=== PATIENT | male | born 1980 | race Caucasian/White ===

== ENCOUNTER 2021-02-07 11:49 | Outpatient (CLI) | payer OTHER, SELFPAY ==
--- NOTE | 2021-02-07 | XR_ITS ---
WS: [id number] PROCEDURE: XR chest 2V* [id number] CLINICAL INFORMATION: NIGHTS SWEATS/PRIOR CT SHOWED LYMPHADENOPATHY COMPARISON: and CT chest abdomen pelvis 2018 FINDINGS: Heart: Normal cardiac silhouette. Lungs: Lungs are well aerated. No consolidation or pleural fluid. No acute pulmonary infiltrates. No focal pneumonia or pleural fluid. Bones: Normal visualized bony structures. XR/XR chest 2V* [id number] IMPRESSION: 1. No acute pulmonary infiltrates today. 2. Previous described mucus plugging in the left upper lobe with some residual opacity appears improved compared to 2018. This can be followed up with chest CT.
== END 2021-02-07 11:50 | disposition home or self-care (01) ==
PROVIDERS: Visit Provider Family Medicine
DX: R61 Generalized hyperhidrosis (principal)
CPT/HCPCS: 71046

== ENCOUNTER 2021-03-07 14:22 | Outpatient (CLI) | payer OTHER, SELFPAY ==
--- NOTE | 2021-03-07 14:44 | CT_ITS ---
WS: [id number] CT CHEST WITH INTRAVENOUS CONTRAST HISTORY: NIGHT SWEATS, PRIOR CT SHOWED LYMPHADENOPATHY TECHNIQUE: Contiguous 5 mm axial imaging performed on the thorax. Coronal and sagittal reformats are submitted. All CT scans at [facility] use at least one of these dose optimization techniques: automated exposure control; mA and/or kV adjustment per patient size (includes targeted exams where dose is matched to clinical indication); or iterative reconstruction. CONTRAST: Omnipaque 300; 95 mL IV. DLP: 541.69 mGycm COMPARISON: 03/25/2018 Lungs and central airway: Noncalcified 8 mm ovoid nodule LEFT upper lobe adjacent to the fissure. Thi s nodule is in an area of resolved pneumonia as seen on the study from 2018. Pleura: Normal. No pleural effusion. Heart and pericardium: Normal size heart with no pericardial effusion. Mediastinum and olamide: No mediastinum or hilar adenopathy. Vessels: Mild atherosclerosis aorta. Normal size pulmonary artery. Chest wall and lower neck: No soft tissue masses. Upper abdomen: Scattered nodules of decreased attenuation within the liver. These were seen on the pr ior studies without progression. These are probably hemangiomas or small cysts which are too small to characterize completely. Possible stone at the neck of the gallbladder. No acute cholecystitis. No a drenal mass. Osseous structures: No destructive process. CT/CT chest w con* [id number] IMPRESSION: 1. LEFT upper lobe noncalcified 8 mm ovoid nodule. This nodule is in the same area as the previously described pneumonia seen on the study from 2018. No int erval examination to evaluate for resolution or stability. Recommend follow-up chest CT in 6 months to document stability. Noncontrast chest CT should be suff icient. 2. No mediastinal or hilar adenopathy.
[2021-03-07] MEDS: iohexol 300 mg/mL 100 mL Btl IV (15:01)
== END 2021-03-07 14:23 | disposition home or self-care (01) ==
PROVIDERS: Visit Provider Family Medicine
DX: R61 Generalized hyperhidrosis (principal); R91.1 Solitary pulmonary nodule
CPT/HCPCS: 71260; Q9967

== ENCOUNTER 2021-11-17 14:28 | Emergency (ER) | payer MEDICAID, SELFPAY ==
[2021-11-17 14:33] VITALS: BP 157/85; PULSE 44; RESP 16; TEMP 35.9; O2SAT 100; BMI 23.6
--- NOTE | 2021-11-17 14:55 | CTR_ITS ---
PROCEDURE INFORMATION: Exam: CT Abdomen And Pelvis Without Contrast Exam date and time: 11/17/2021 3:40 PM Age: 41 years old Clinical indication: Abdominal pain; Patient HX: C/O epigastric pain TECHNIQUE: Imaging protocol: Computed tomography of the abdomen and pelvis without contrast. Radiation optimization: All CT scans at this facility use at least one of these dose optimization techniques: automated exposure control; mA and/or kV adjustment per patient size (includes targeted exams where dose is matched to clinical indication); or iterative reconstruction. COMPARISON: CT Chest/Abdomen/Pelvis w IV* 03/25/2018 3:02 AM RADIATION DOSE METRICS: Total DLP (mGy-cm): 868.24 FINDINGS: Liver: Liver is normal in size without cirrhosis. A discrete hypodense hepatic dome lesion is noted measuring 6 mm, probably benign such as hepatic cysts, unchanged. Several other small hypodense lesions were also seen on previous contrast-enhanced exam which are difficult to assess without IV contrast currently. If there is high risk or prior malignancy, dedicated hepatic imaging by multiphasic contrast-enhanced MRI may also be considered. Gallbladder and bile ducts: There is a calcified calculus which may be impacted in the gallbladder neck region measuring 12 mm. Additional punctate calculi may also be present in the gallbladder fundal region. There is distended gallbladder lumen. However no obvious wall thickening or acute regional inflammatory response. Clinical/sonographic correlation may be helpful. No abnormal bile duct dilatation. Pancreas: Normal. No ductal dilation. Spleen: Normal. No splenomegaly. Adrenal glands: Normal. No mass. Kidneys and ureters: Punctate nonobstructing left renal calculus measuring 2 x 2 mm. No hydronephrosis. Right upper pole renal hypodense lesion measuring about 9 mm which was demonstrated to be probable simple cysts on prior contrast-enhanced exam. Stomach and bowel: Small amount of fecal retention. Ill-defined right upper pole hypodense renal No obvious bowel dilatation, pneumatosis or suspicious bowel wall thickening however assessment is limited due to lack of contrast. Slightly increased submucosal fat throughout some colonic segments, nonspecific and may be related to normal physiologic variation or mild nonspecific chronic colitis. Appendix: No evidence of appendicitis. Intraperitoneal space: Unremarkable. No free air. No significant fluid collection. Vasculature: No abdominal aortic aneurysm. Lymph nodes: No enlarged lymph nodes. Urinary bladder: Unremarkable as visualized. Reproductive: Unremarkable as visualized. Bones/joints: No acute fracture. Soft tissues: No acute findings. CT/CT abdomen pelvis wo con [id number] IMPRESSION: 1. Hepatic lesion as described. See discussion above. No cirrhosis. 2. Cholelithiasis. Somewhat distended gallbladder lumen. See discussion above. 3. Nonobstructing left renal calculus and small hypodense left renal lesion, too small to characterize but is likely simple cyst. No acute urinary tract findings otherwise. 4. Slightly increased submucosal fat throughout some colonic segments. No acute bowel findings otherwise. COMMENTS: Consistent with the [employer]'s Incidental Findings Committee white paper (J Am Holley Radiol 2018): Any incidental renal lesion less than 1 cm or classified as too small to characterize, or any incidental cystic renal lesion characterized as simple-appearing, is likely benign. No follow-up imaging is recommended for these lesions per consensus recommendations based on imaging criteria.
--- NOTE | 2021-11-17 14:56 | XR_ITS ---
WS: [id number] Portable AP upright chest, 11/17/2021 Clinical Data: dyspnea/cough Comparison: PA and lateral chest, 02/07/2021. Findings: No nodules, masses or effusions are seen. The heart is normal. The pulmonary vascularity is not increased. No pneumonia or pneumothorax is seen. XR/XR chest 1V portable [id number] Impression: Negative chest.
--- NOTE | 2021-11-17 14:56 | ECG_ITS ---
[facility] Test Date: 2021-11-17 Pat Name: Mitchell Peters Department: Room: Gender: Male Nursing Officer: : 1980 Requested By: Petey Brand Order Number: [id number] Merissa MD: Marika Dow M.D. Measurements Intervals Frost Rate: 43 P: 39 WA: 136 QRS: 58 QRSD: 80 T: 60 QT: 447 QTc: 380 Interpretive Statements SINUS BRADYCARDIA Compared to ECG 03/25/2018 04:21:53 Sinus rhythm no longer present Electronically Signed On 11-17-2021 16:15:52 CDT by Marika Dow M.D. [id number]
--- NOTE | 2021-11-17 15:05 | W.ED.ABDPA2 ---
HPI - Abdominal Pain General: Chief Complaint: Abdominal Pain Stated Complaint: chest,abdominal,& back pain/feels bloated Time Seen by Provider: 11/17/21 14:53 Source: patient Mode of arrival: ambulatory Limitations: no limitations History of Present Illness: 41-year-old male presents to the emergency room with complaint of abdominal discomfort. He has a history of HIV. He is not had any fever sweats chills no hematochezia melena hematemesis cough cramps dysuria urgency or frequency no vomiting or diarrhea. Localizes the pain to the epigastric periumbilical area. He is followed by infectious disease in [place]. MD elicited complaint: abdominal pain Pertinent past history: other (HIV) Onset (ago): hour(s) Pain Consistency: constant Location: Chest, Epigastric and Periumbilical Severity: moderate Quality: cramping Radiation: none Migration to: no migration Exacerbating factors: eating Relieving factors: nothing Associated Symptoms: Reports bloating; Denies anorexia, belching, change in bowel habits, change in stool character, chills, coffee ground emesis, constipation, GI cramping, diarrhea, dyspepsia, dysuria, excessive flatus, fever(s), heartburn, hematochezia, hematuria, hematemesis, fecal incontinence, loose stools, melena, nausea, poor appetite, syncope and vomiting Review of Systems Const: Denies: fever(s) or chills ENMT: Denies: throat pain, ear or mastoid pain, nasal discharge or nasal congestion Card: Denies: syncope Resp: Denies: dyspnea, productive cough or non-productive cough GI: Reports: bloating; Denies: nausea, vomiting, hematemesis, coffee ground emesis, heartburn, diarrhea, constipation, GI cramping, belching, excessive flatus, fecal incontinence, change in bowel habits, change in stool character, hematochezia or melena : Denies: flank pain, difficulty urinating, dysuria, urinary frequency, urinary urgency or hematuria Skin/Breast: Denies: rash or pruritus PFSH ED PFSH: Medical History (Updated 11/18/21 @ 16:24 by Petey Muñoz DO) HIV (human immunodeficiency virus infection) Physical Exam Const: COMMON NORMALS: no acute distress GENERAL APPEARANCE: cooperative and comfortable ORIENTATION/CONSCIOUSNESS: Yes awake, Yes oriented to person, Yes oriented to place and Yes oriented to time HENMT: COMMON NORMALS: normocephalic and atraumatic HEAD & SCALP: normocephalic and atraumatic Neck/C-Spine: COMMON NORMALS: no JVD Resp: COMMON NORMALS: normal respiratory effort, No retractions, No use of accessory muscles and clear to auscultation bilaterally AUSCULTATION: clear to auscultation bilaterally Cardio: COMMON NORMALS: no JVD, regular rate, regular rhythm and No murmurs present (Cardio) RATE: regular rate RHYTHM: regular rhythm GI: COMMON NORMALS: Soft to palpation and No hepatosplenomegaly present AUSCULTATION: Yes normoactive bowel sounds PALPATION: Yes Soft to palpation, No Tenderness to palpation present (GI), No Guarding due to palpation present (GI) and Yes No hepatosplenomegaly present Extremity: COMMON NORMALS: normal to inspection, capillary refill normal, no clubbing, cyanosis or edema, no calf tenderness and no pedal edema Neuro: SENSORIUM/ORIENTATION: Yes oriented to person, Yes oriented to place and Yes oriented to time Skin: COMMON NORMALS: no rashes or lesions noted GENERAL SKIN EXAM: no rashes or lesions noted Course Vital Signs: Vital signs: Vital Signs Temperature 96.6 F L 11/17/21 14:33 Pulse Rate 57 L 11/17/21 17:30 Respiratory Rate 16 11/17/21 17:30 Blood Pressure 136/84 11/17/21 17:30 Pulse Oximetry 98 11/17/21 17:30 MDM - Abdominal Pain Medical Decision Making Labs and imaging reviewed. Patient has some cholelithiasis but no acute liver changes. We will discharge the patient home and have him stick with a bland diet start a proton pump inhibitor and follow-up with his primary care doctor also gave pain and nausea medications return if is worsening problems. Medical Records I reviewed the patient's medical records. Lab Data I reviewed the patient's lab results. : 11/17/21 15:10 11/17/21 15:10 Labs/Radiology: Radiology Impressions Abdomen/Pelvis CT 11/17/21 14:55 IMPRESSION: 1. Hepatic lesion as described. See discussion above. No cirrhosis. 2. Cholelithiasis. Somewhat distended gallbladder lumen. See discussion above. 3. Nonobstructing left renal calculus and small hypodense left renal lesion, too small to characterize but is likely simple cyst. No acute urinary tract findings otherwise. 4. Slightly increased submucosal fat throughout some colonic segments. No acute bowel findings otherwise. COMMENTS: Consistent with the [employer]'s Incidental Findings Committee white paper (J Am Holley Radiol 2018): Any incidental renal lesion less than 1 cm or classified as too small to characterize, or any incidental cystic renal lesion characterized as simple-appearing, is likely benign. No follow-up imaging is recommended for these lesions per consensus recommendations based on imaging criteria. Chest X-Ray 11/17/21 14:56 Impression: Negative chest. Laboratory Results WBC 12.5 10^3/uL (4.0-10.0) H 11/17/21 15:10 RBC 4.58 10^6/uL (4.1-5.3) 11/17/21 15:10 Hgb 14.6 g/dL (11.7-16.6) 11/17/21 15:10 Hct 41.6 % (42.0-52.0) L 11/17/21 15:10 MCV 90.8 fl (80-94) 11/17/21 15:10 MCH 31.9 pg (28.0-34.0) 11/17/21 15:10 MCHC 35.1 g/dL (30.0-36.0) 11/17/21 15:10 RDW 12.3 % (12.1-15.1) 11/17/21 15:10 Plt Count 198 10^3/cmm (130-400) 11/17/21 15:10 MPV 11.2 fL (7.4-10.4) H 11/17/21 15:10 Neut % (Auto) 83.6 % 11/17/21 15:10 Lymph % (Auto) 10.7 % 11/17/21 15:10 [place] % (Auto) 4.6 % 11/17/21 15:10 Eos % (Auto) 0.2 % 11/17/21 15:10 Baso % (Auto) 0.5 % 11/17/21 15:10 Neut # (Auto) 10.42 10^3/uL (1.8-7.7) H 11/17/21 15:10 Lymph # (Auto) 1.3 10^3/uL (0.8-4.8) 11/17/21 15:10 [place] # (Auto) 0.6 10^3/uL (0.2-0.9) 11/17/21 15:10 Eos # (Auto) 0.0 10^3/uL (0.0-0.8) 11/17/21 15:10 Baso # (Auto) 0.1 10^3/uL (0.0-0.1) 11/17/21 15:10 Nucleated RBC % (auto) 0 % 11/17/21 15:10 Nucleated RBCs # 0.0 /100WBC 11/17/21 15:10 Sodium 137 mmol/L (136-145) 11/17/21 15:10 Potassium 3.9 mmol/L (3.5-5.1) 11/17/21 15:10 Chloride 100 mmol/L (98-107) 11/17/21 15:10 Carbon Dioxide 25 mmol/L (22-29) 11/17/21 15:10 Anion Gap 15.9 (5-19) 11/17/21 15:10 BUN 7 mg/dL (6-20) 11/17/21 15:10 Creatinine 1.0 mg/dL (0.7-1.2) 11/17/21 15:10 GFR Calculation 81.9 mL/min (90-130) L 11/17/21 15:10 Glucose 122 mg/dL (65-115) H 11/17/21 15:10 Calculated Osmolality 283 mOsm/kg (285-295) L 11/17/21 15:10 Calcium 8.4 mg/dL (8.5-10.5) L 11/17/21 15:10 Total Bilirubin 0.7 mg/dL (0.15-1.2) 11/17/21 15:10 AST 14 U/L (0-40) 11/17/21 15:10 ALT 14 U/L (0-41) 11/17/21 15:10 Alkaline Phosphatase 82 IU/L (40-130) 11/17/21 15:10 Total Protein 7.3 g/dL (6.6-8.7) 11/17/21 15:10 Albumin 4.6 g/dL (3.5-5.2) 11/17/21 15:10 Globulin 2.7 g/dL (1.3-4.6) 11/17/21 15:10 Lipase 15 U/L (13-60) 11/17/21 15:10 Urine Color Yellow (Yellow) 11/17/21 14:40 Urine Appearance Clear (CLEAR) 11/17/21 14:40 Urine pH 7 (5-7) 11/17/21 14:40 Ur Specific Hart 1.015 (1.005-1.030) 11/17/21 14:40 Urine Protein Neg (Negative) 11/17/21 14:40 Urine Glucose (UA) Norm (Normal) 11/17/21 14:40 Urine Ketones Negative (Negative) 11/17/21 14:40 Urine Blood Neg (Negative) 11/17/21 14:40 Urine Nitrate Negative (Negative) 11/17/21 14:40 Urine Bilirubin Neg (Negative) 11/17/21 14:40 Urine Urobilinogen Norm mg/dL (Negative) 11/17/21 14:40 Ur Leukocyte Esterase Negative (Negative) 11/17/21 14:40 Discharge Plan Discharge Patient Disposition: Home Clinical Impression: Cholelithiasis, Biliary colic Condition: Stable Prescriptions: New hydrocodone-acetaminophen 5-325 mg tablet 1 tab PO Q6H PRN (Reason: pain) Qty: 25 0RF promethazine 25 mg tablet 25 mg PO Q6H PRN (Reason: nausea and vomiting) Qty: 20 0RF Protonix 40 mg tablet,delayed release (DR/EC) 40 mg PO DAILY Qty: 30 0RF No Action triamcinolone acetonide 0.1 % ointment 1 applic TOPICAL TID PRN (Reason: Rash) 0RF montelukast 10 mg tablet 10 mg PO DAILY PRN (Reason: Allergy Symptoms) 0RF Biktarvy 50-200-25 mg tablet 1 tab PO DAILY@12 0RF Discharge Orders: Discharge ED (Routine); Ordered 11/17/21 Ordered By: Petey Muñoz Discharge Diet: Clear Liquid Discharge Activity: Increase activity as tolerated Patient Instructions: Abdominal Pain (ED), Opioid Safety Activity Restrictions/Additional Instructions: Case management make arrangements for you to follow-up with general surgery for cholelithiasis and biliary colic. Coding Level of Care Code ED Armored Truck Driver for Yandel Portillo
[2021-11-17 15:20] LABS: Basophils # 0.1 10^3/uL (0.0-0.1); Basophils % 0.5 %; Eosinophils % 0.2 %; Hematocrit 41.6 % (42.0-52.0); Hemoglobin 14.6 g/dL (11.7-16.6); Lymphocytes # 1.3 10^3/uL (0.8-4.8); Lymphocytes % 10.7 %; Mean Corpuscular HGB Conc 35.1 g/dL (30.0-36.0); Mean Corpuscular Hemoglobin 31.9 pg (28.0-34.0); Mean Corpuscular Volume 90.8 fl (80-94); Mean Platelet Volume 11.2 fL (7.4-10.4); Monocytes # 0.6 10^3/uL (0.2-0.9); Monocytes % 4.6 %; Neutrophils # 10.42 10^3/uL (1.8-7.7); Neutrophils % 83.6 %; Nucleated Red Blood Cells % 0 %; Platelet Count 198 10^3/cmm (130-400); Red Blood Count 4.58 10^6/uL (4.1-5.3); Red Cell Distribution Width 12.3 % (12.1-15.1); White Blood Count 12.5 10^3/uL (4.0-10.0)
[2021-11-17 15:36] LABS: Add Urine Microscopic? NO; Charge for UA Resulting for Rev
[2021-11-17 15:40] LABS: Bilirubin Urine Neg (Negative); Blood Urine Neg (Negative); Glucose Urine UA Norm (Normal); Ketones Urine Negative (Negative); Leukocyte Esterase Urine Negative (Negative); Nitrate Urine Negative (Negative); Protein Urine Neg (Negative); Specific Gravity, Urine 1.015 (1.005-1.030); Urine Appearance Clear (CLEAR); Urine Color Yellow (Yellow); Urobilinogen Urine Norm (Negative); pH Urine 7 (5-7)
[2021-11-17 15:45] LABS: Alanine Aminotransferase 14 U/L (0-41); Albumin Level 4.6 g/dL (3.5-5.2); Alkaline Phosphatase 82 IU/L (40-130); Anion Gap 15.9 (5-19); Aspartate Amino Transferase 14 U/L (0-40); Blood Urea Nitrogen 7 mg/dL (6-20); Calcium 8.4 mg/dL (8.5-10.5); Carbon Dioxide 25 mmol/L (22-29); Chloride 100 mmol/L (98-107); Globulin 2.7 g/dL (1.3-4.6); Glomerular Filtration Rate 81.9 mL/min (90-130); Glucose 122 mg/dL (65-115); Lipase 15 U/L (13-60); Osmolality Calculated 283 mOsm/kg (285-295); Potassium 3.9 mmol/L (3.5-5.1); Sodium 137 mmol/L (136-145); Total Bilirubin 0.7 mg/dL (0.15-1.2); Total Protein 7.3 g/dL (6.6-8.7)
[2021-11-17 16:44] VITALS: RESP 16
[2021-11-17] MEDS: morphine 4 mg/mL SDV 1 mL IVP (16:44)
[2021-11-17] MEDS: ondansetron 2 mg/ML SDV 2 mL 4 MG IVP (16:44)
[2021-11-17] MEDS: sodium chloride 0.9% 1,000 ML 999 ML IV (16:44)
[2021-11-17 17:30] VITALS: BP 136/84; PULSE 57; RESP 16; O2SAT 98
== END 2021-11-17 17:52 | disposition home or self-care (01) ==
PROVIDERS: Emergency Provider Family Medicine
DX: K80.20 Calculus of gallbladder without cholecystitis without obstruction (principal); K80.50 Calculus of bile duct without cholangitis or cholecystitis without obstruction
CPT/HCPCS: 71045; 74176; 80053; 81003; 83690; 85025; 93005; 96374; 96375; 99284; J2270; J2405; J7030

== ENCOUNTER → 2021-12-20 09:01 | Outpatient (BNVA) | payer MEDICAID, SELFPAY | PROVIDERS: Visit Provider Surgery | DX: R10.11 Right upper quadrant pain (principal) | CPT/HCPCS: 99203 ==

== ENCOUNTER 2022-01-19 13:34 | Outpatient (CLI) | payer MEDICAID, SELFPAY ==
--- NOTE | 2022-01-19 13:30 | US_ITS ---
WS: [id number] ULTRASOUND ABDOMEN LIMITED CLINICAL INFORMATION: abd pain COMPARISON: None. FINDINGS: Technically difficult study due to bowel gas. Liver Size: Normal. Craniocaudal length: 14.7 cm. Echogenicity: Normal. Surface nodularity: None. Mass (size and location): None. Bile ducts Intrahepatic ducts: Normal. Common bile duct diameter: 0.3 cm. Gallbladder Dense shadowing cholelithiasis. Gallstones: Present Gallbladder sludge: None. Gallbladder wall thickening: None. Pericholecystic fluid: None. Sonographic Browning sign: Absent. Pancreas Not well seen Right kidney: Upper pole simple renal cyst measuring 10 x 10 x 8 mm Hydronephrosis: None. Size: 9.0 cm x 5.7 cm x 3.8 cm. Abdominal aorta and IVC Visualized portions are normal. Ascites: None. US/US gall bladder [id number] IMPRESSION: Technically difficult study due to bowel gas. 1. Normal liver. 2. Dense shadowing cholelithiasis. No gallbladder wall thickening or perichole cystic fluid. Negative Browning's sign. 3. Normal common bile duct measuring 3 mm. 4. Upper pole simple RIGHT renal cyst measuring 10 x 10 x 8 mm
== END 2022-01-19 13:35 | disposition home or self-care (01) ==
LOC: RAD 13:37
PROVIDERS: Visit Provider Surgery
DX: R10.9 Unspecified abdominal pain (principal); K80.20 Calculus of gallbladder without cholecystitis without obstruction; N28.1 Cyst of kidney, acquired
CPT/HCPCS: 76705

== ENCOUNTER → 2022-02-14 13:20 | Outpatient (BNVA) | payer MEDICAID, SELFPAY | PROVIDERS: Visit Provider Surgery | DX: Z09 Encounter for follow-up examination after completed treatment for conditions other than malignant neoplasm (principal); R10.11 Right upper quadrant pain; K80.20 Calculus of gallbladder without cholecystitis without obstruction | CPT/HCPCS: 99213 ==

== ENCOUNTER 2022-03-06 06:46 | Day surgery (SDC) | payer MEDICAID, SELFPAY ==
[2022-03-02 10:36] VITALS: BMI 23.3
[2022-03-06] VITALS (12 sets, daily range): BP systolic 115–136; BP diastolic 72–88; PULSE 55–86; RESP 10–21; TEMP 36.1–36.8; O2SAT 94–100
[2022-03-06] MEDS: sodium chloride 0.9% 1,000 ML 30 ML IV (07:22)
[2022-03-06] MEDS: acetaminophen 1,000 MG/100 ML PIGGYBACK 400 MG IV (07:25)
--- NOTE | 2022-03-06 07:47 | ANES.PREANE2 ---
Pre-Anesthetic Assessment Height/Weight: Height 1.65 m Weight 63.503 kg Temp Pulse Resp BP Pulse Ox O2 Del Method 98.1 F 79 18 116/85 97 03/06/22 07:05 03/06/22 07:05 03/06/22 07:05 03/06/22 07:05 03/06/22 07:05 03/06/22 07:13 Preop Diagnosis: Symptomatic cholelithiasis Operation Date: 03/06/22 08:10 Proposed Procedures p lap cholecystectomy [place] open 17262,R10.11(Not Applicable) - Georgi Leonard MD Familial anesthetic complications: None Was Beta Jennifer taken within 24 hours: N/A Was Clonidine taken within 24 hours: N/A Last intake: Intake Last Liquid Date 03/05/22 Last Liquid Time 23:00 Last Solid Date 03/05/22 Last Solid Time 21:00 Social No alcohol and No tobacco Exam alert, oriented x 3, clear to auscultation bilaterally and regular rate & rhythm Airway Mallampati: Class II Dentition: chipped CV/HEM HIV positive Anesthetic Plan ASA status: 3 Anesthesia: General Risk of > 500 ml blood loss (7ml/kg in children): No Medications/Allergies Home Medications Medication Instructions Recorded Confirmed Last Taken Type bictegravir 50 mg-emtricitabine 1 tab PO DAILY@12 11/17/21 03/06/22 03/05/22 History 200 mg-tenofovir alafenam 25 mg tablet (Biktarvy) Allergies Allergy/AdvReac Type Severity Reaction Status Date / Time No Known Allergies Allergy Verified 03/02/22 10:35 Current Medications Generic Name Dose Route Start Last Admin Trade Name Jarekq PRN Reason Stop Dose Admin Sodium Chloride 1,000 mls @ 30 mls/hr 03/06/22 07:00 03/06/22 07:22 Sodium Chloride 0.9% IV 03/07/22 06:59 30 mls/hr .Q24H CARLOS Administration PFSH Anesthesia Medical History HIV (human immunodeficiency virus infection) Family History Other CAD (coronary artery disease) Social History Smoking and tobacco status: never smoked Data Anesthesia Cardiac Studies: No Data to Display
--- NOTE | 2022-03-06 07:47 | W.PM.OPSUD ---
Surgery/Procedure H&P Update DATE OF PROCEDURE: March 06, 2022 DATE H&P PERFORMED: 02/14/22 H&P UPDATE INFORMATION: I have reviewed H&P completed within last 30 days, I have examined patient prior to procedure and No changes to prior documentation PREOP DIAGNOSIS: Symptomatic cholelithiasis PRIMARY INDICATION FOR PROCEDURE: The same PLANNED PROCEDURE: Operation Date: 03/06/22 08:10 Proposed Procedures p lap cholecystectomy possible open 15907,R10.11(Not Applicable) - Georgi Leonard MD
[2022-03-06] MEDS: ceFAZolin 2,000 MG in sodium chloride 0.9% (plus) 50 ML 100 MG IV (08:05)
[2022-03-06] MEDS: lidocaine 2% INJ 20 mL INJECTION (08:35)
--- NOTE | 2022-03-06 09:26 | PM.OP ---
Operative Report Date of procedure: March 06, 2022 Pre-op diagnosis: Preop Diagnosis Symptomatic cholelithiasis Post-op diagnosis: Chronic calculus cholecystitis and fatty liver Procedure done: Laparoscopic cholecystectomy Implants: Pieces of Surgicel at the gallbladder fossa Specimens removed/disposition: Gallbladder and contents Surgeon: Georgi Leonard MD Transportation Inspector: Surgical kobe Pierce and Shemar Circulating nurses Shahnaz and Rita Anesthesia: General (hims manager Suraj and Alicia) Estimated blood loss (mL): 25 IV fluids (mL): 800 Procedure: Patient was identified in the holding area and taken back to the operative suite, placed in supine position intubated by anesthesia . Time-out was done verifying the patient's name/date of /planned procedure and destination after the procedure, all were in agreement. SCDs confirmed to be functioning, preoperative antibiotics administered per protocol, and beta geovanna protocol was confirmed. Patient was appropriately secured to the table, footboard was applied to the OR table, before prep and drape anesthesia was asked to tilt the table back and forth to make sure that the patient is appropriately secured and she was. Prep and drape of the abdomen was done under the usual sterile technique, followed by that supraumbilical skin incision,skin incision was done by a 15 blade knife, and stay sutures were applied to the fascia and Jones trocar technique was used to enter the abdominal without injuring any abdominal viscera, started by low flow gas insufflation followed by a high flow, started with a 10 mm laparoscope and under direct vision there was no evidence of any injuries, the scope then switched to a 30? ,10 millimeter scope and under direct visualization 5 millimeter trocar was inserted in the epigastric region followed by two 5 mm trocars were inserted in the right upper quadrant that was done after injection of local lidocaine 2% at all incision sites. Gallbladder showed acute component on top of chronic calculus cholecystitis and Fatty Liver Patient was then positioned in the head up and tilted to the left. Ratcheted forceps were introduced into the lateral most 5mm port and was applied unto the fundus of the gallbladder cephalad and using Bullet forceps the infundibulum of the gallbladder was retracted laterally. Using [place] forceps then L-hook cautery to dissect the peritoneum overlying the Calot's triangle which was then opened medially and laterally until the cystic duct and the cystic artery were skeletonized. Dissection was carried along the body of the gallbladder and after ensuring critical view of safety was identfied. Cystic duct and cystic artery where seen connected to the gallbladder. Clips were applied on the cystic duct towards the common bile duct 1 towards the gallbladder then divided is in sharp scissors, 2 clips were then applied onto the cystic artery and 1 towards the gallbladder and divided by sharp scissors. Additional traversing vessels were clipped and divided Dissection was then carried along of the gallbladder from the gallbladder fossa using cautery as well as sharp dissection with heat energy. The gallbladder then was dissected out from the gallbladder fossa totally , cholecystectomy was then achieved and was placed in an Endo Catch bag and then retrieved from the Jones trocar site under direct visualization using a 5 mm 30? scope through the epigastric trocar, specimen was then passed to the circulating nurse to go for permanent pathology,irrigation and hemostasis was done to the gallbladder fossa after hemostasis was secured and finalized by placement of pieces of Surgicel at the gallbladder fossa, final survey laparoscopy was done that showed no injuries. Suction irrigation was obtained The supraumbilical fascial defect was then closed using interrupted number one PDS sutures using a fascial closure device ;Carl Fuentes under direct visualization following that Gas was allowed to deflate,Trocars were then taken out under direct vision there was no evidence of bleeding. Specimen was passed to the circulating nurse for permanent pathology. No drains were placed and the supraumbilical incision as well as all trocar sites were closed by 3/0 Vicryl followed by skin laurel to approximate the skin edges of the incisions , dressing was applied in the form of surical glue and the patient patient got extubated and was taken to recovery area in a stable condition. Count of sponges,needles and instruments were completed at the end of the procedure I was present for the whole entire procedure.
--- NOTE | 2022-03-06 09:46 | SUR.PHASEI ---
0938 PT TO PACU 5 PT WITH ORAL AIRWAY IN PLACE, WITH GOOD RESP EFFORT NOTED SATS 97-100% ON 8L MASK , NO DISTRESS NOTED MONITOR SR WITH NO ECTOPY NOTED IV TO LT HAND #20 PATENT OF NS 200ML UP AT KVO RATE PER GRAVITY, ID BRACELET TO RT WRIST , PT ID'D WITH 2 IDENTIFIERS, BILAT SCDS ON ABDOMEN SOFT WITH 4 SITES WITH BANDAIDS D/I.
--- NOTE | 2022-03-06 09:52 | SUR.PHASEI ---
PT STILL DOES NOT AWAKE TO VOICE OR TOUCH, PT SLEEPS QUIETLY WITH NO DISTRESS NOTED.
--- NOTE | 2022-03-06 10:06 | SUR.PHASEI ---
PT OPENS EYES TO VOICE, PT GROGGY AND DOES NOT ANSWER QUESTIONS , ORAL AIRWAY OUT PT ON RA TRIAL, RESP EVEN AND UNLABORED.
--- NOTE | 2022-03-06 10:15 | SUR.PHASEI ---
PT REMAINS VERY SLEEPY, BUT NODS YES TO ICE CHIPS, PT TAKES SMALL ICE CHIPS AND TOLERATED WELL, PT NODS NO TO PAIN AND NAUSEA, WARM BLANKET TO PT. PT ENCOURAGED TO SUPPORT ABDOMEN WHEN COUGHING. ABDOMEN SOFT , UNCHANGED VSS.
--- NOTE | 2022-03-06 10:30 | SUR.PHASEI ---
1021 PT AWAKE, RESPONDS VERBALLY AND APPROPRIATELY, PT TO OPS 5 HANDOFF AT BEDSIDE TO NANCY PRAJAPATI.
[2022-03-06] MEDS: ondansetron 2 mg/ML SDV 2 mL 4 MG IVP (11:05)
--- NOTE | 2022-03-06 15:30 | ANE.PACU2 ---
Inpatient post-anesthesia follow up: Airway intact: Yes Vital signs: Temperature 97.0 F Pulse Rate 55 Respiratory Rate 18 Blood Pressure 136/86 Pulse Oximetry 96 Oxygen Delivery Me thod Room Air Oxygen Flow Rate 8 Fraction of Inspir ed Oxygen Hydration adequate: Yes Nausea and vomiting: No Pain level: 1 Mental status: Baseline
== END 2022-03-06 11:21 | disposition home or self-care (01) ==
PROVIDERS: Visit Provider Surgery
PROC: 0FT44ZZ Resection of Gallbladder, Percutaneous Endoscopic Approach (ICD-10-PCS; CPT 47562; principal; 2022-03-06 08:00)
DX: K80.10 Calculus of gallbladder with chronic cholecystitis without obstruction (principal); Z21 Asymptomatic human immunodeficiency virus [HIV] infection status
CPT/HCPCS: 47562; 88304; J1100; J1170; J2250; J2405; J2704; J2710; J3010; J3490; J7030